=== PATIENT | male | born 1955 | race Asian ===

== ENCOUNTER 2024-02-02 06:54 | Day surgery (SDC) | payer OTHER ==
[~2024-02-02] VITALS: Ht 172.7 cm; Wt 83.0 kg
[~2024-02-02 06:54] MED LIST: SODIUM CHLORIDE 0.9% 0 ML ONE
[2024-02-02] MEDS ORDERED: LIDOCAINE 4% 50 ML SOLUTION TP ONE (06:55)
[2024-02-02] MEDS ORDERED: LIDOCAINE 2% 11 ML JELLY TP ONE (06:55)
[2024-02-02] MEDS ORDERED: BENZOCAINE 20% 50 MCG/SPRAY 57 GM TP ONE (06:55)
[2024-02-02] MEDS ORDERED: ALBUTEROL SULFATE 2.5 MG/0.5 ML NEB SOLUTION NEB ONE (06:55)
[2024-02-02] MEDS ORDERED: ATOR20TA65 PO (07:30)
[2024-02-02] MEDS ORDERED: AMLO10TA55 PO (07:30)
[2024-02-02] MEDS ORDERED: ASPI-1444 PO (07:30)
[2024-02-02] MEDS ORDERED: FLUT12AE3 IH (07:30)
[2024-02-02] MEDS ORDERED: FentaNYL CITRATE PF 100 MCG/2 ML VIAL ONE (08:06)
[2024-02-02] MEDS ORDERED: MIDAZOLAM HCL 2 MG/2 ML VIAL ONE (08:06)
[2024-02-02] MEDS ORDERED: SODIUM CHLORIDE 0.9% 1,000 ML ONE (08:21)
[2024-02-02] MEDS: SODIUM CHLORIDE 0.9% 1,000 ML IV ONE (08:24)
[2024-02-02] MEDS ORDERED: MethylPREDNISolone SOD SUCC 125 MG/2 ML VIAL ONE (10:34)
[2024-02-02] MEDS: MethylPREDNISolone SOD SUCC 125 MG/2 ML VIAL IVP ONE (10:44)
[2024-02-02 14:03] VITALS: PULSE 104; RESP 22; O2SAT 100
== END 2024-02-02 12:10 | disposition home or self-care (01) ==
LOC: SURGERY 06:54
PROVIDERS: ATTEND Internal Medicine Critical Care Medicine
DX: R05.3 Chronic cough (principal); J38.4 Edema of larynx; B37.0 Candidal stomatitis; R04.2 Hemoptysis; J98.09 Other diseases of bronchus, not elsewhere classified; J84.10 Pulmonary fibrosis, unspecified; J98.8 Other specified respiratory disorders; R91.8 Other nonspecific abnormal finding of lung field; Z85.21 Personal history of malignant neoplasm of larynx
CPT/HCPCS: 87206; 87101; 87220; 87070; 88108; 31623; 31624; 94640; 71045; 87015; J3010; J2250; J2919; J7030; J7613; Z7610